=== PATIENT | female | born 1985 | race Caucasian/White ===

== ENCOUNTER 2020-03-14 07:51 | Day surgery (SDC) | payer OTHER, SELFPAY ==
--- NOTE | 2020-03-13 12:08 | HO.ANESPROP2 ---
Documented by User: Kimberly Martinez 03/13/20 12:09 HPI - Anesthesia Eval Consult details Narrative: 34yo F for umbilical hernia repair [facility] Past Medical History Medical History Opiate addiction Surgical History Surgical History Hx of hernia repair Previous section Social History Social History Are you a primary pharmacist critical care to a significant other at home: No Do you presently have visiting nurse or other home services: No Smoking Status: Never smoker Smoked in Last 30 Days: No Use of substances other than those prescribed or required for medical reasons: No Have you been hit, kicked, punched, or otherwise hurt by someone within the past year? If so, by whom?: No Advance Directives: No Advance Directives Information Provided: Yes Advance Directives on File: No Recently lost weight without trying: No Meds Allergies Allergy/AdvReac Type Severity Reaction Status Date / Time codeine Allergy Unknown Verified 03/11/20 09:55 Home Medications Medication Instructions Recorded Confirmed Type buprenorphine HCl [Subutex] 2 mg SUBLINGUAL DAILY 03/11/20 03/11/20 History Exam Exam Date and Time: March 13, 2020 1208 Assessment and Plan Assessment Anesthesia Assessment: Chart Reviewed Documented by User: Joie Jeronimo 03/14/20 10:11 [facility] Past Medical History Medical History Opiate addiction Surgical History Surgical History Hx of hernia repair Previous section Social History Social History Are you a primary pharmacist critical care to a significant other at home: No Do you presently have visiting nurse or other home services: No Smoking Status: Never smoker Smoked in Last 30 Days: No Use of substances other than those prescribed or required for medical reasons: No Have you been hit, kicked, punched, or otherwise hurt by someone within the past year? If so, by whom?: No Advance Directives: No Advance Directives Information Provided: Yes Advance Directives on File: No Recently lost weight without trying: No Meds Allergies Allergy/AdvReac Type Severity Reaction Status Date / Time codeine Allergy Unknown Verified 03/11/20 09:55 Home Medications Medication Instructions Recorded Confirmed Type buprenorphine HCl [Subutex] 2 mg SUBLINGUAL DAILY 03/11/20 03/11/20 History Exam Airway Mallampati Class: II TM Dist: >3cm Neck ROM: Full Loose/Missing/Broken Teeth: No Heart: qRRR Lungs: CTA Assessment and Plan Assessment Anesthesia Assessment: Anesthesia Plan Discussed, Consent Obtained and Chart Reviewed Final Anesthetic Review NPO: Yes ASA Class: II Final Preanesthetic Review: No Changes in Pt Med Stat, Meds & Allergies Reviewed, Consent Obtained/Reviewed, Med/Surg/Anes Hx Reviewed and Anes Risks/Benef Reviewed Patient Risk: Intermediate Procedure Risk: Low Anesthetic Plan Anesthetic Plan: GA Disposition: Standard PACU
[2020-03-14] VITALS (15 sets, daily range): BP systolic 104–125; BP diastolic 43–77; PULSE 62–83; RESP 16–20; TEMP 36.1–36.6; O2SAT 97–99; BMI 42.0
[2020-03-14 08:23] LABS: UPreg QC Valid YES; Urine Pregnancy NEGATIVE (NEGATIVE)
[2020-03-14] MEDS: ceFAZolin Sodium/Dextrose,Iso 2 GM/50 ML PIGGYBACK IV (08:23)
[2020-03-14] MEDS: Lactated Ringers 1,000 ML 100 ML IVCONT (08:23)
--- NOTE | 2020-03-14 10:49 | P.BOP_ITS ---
Brief Operative Note Date of procedure: 03/14/20 Pre-op diagnosis: umbilical hernia Post-op diagnosis: same Procedure: repair of umbilical hernia w/ mesh Implants: mesh - Ventralex Anesthesia: GLMA Surgeon: Marco A Beach [employer] Instruction Facilitator: Brook Butts Estimated blood loss (mL): 20 Pathology: other (sac) Condition: stable Disposition: PACU
[2020-03-14] MEDS: Midazolam HCl/PF 2 MG/2 ML VIAL 1 MG IVPUSH (10:59)
[2020-03-14] MEDS: Acetaminophen 325 MG TABLET 650 MG PO (12:02)
[2020-03-14] MEDS: oxyCODONE HCl Immed Release 5 MG TABLET PO (12:04)
--- NOTE | 2020-03-14 12:09 | OP_ITS ---
SURGEON: Marco A Beach MD PREOPERATIVE DIAGNOSIS: Umbilical hernia. POSTOPERATIVE DIAGNOSIS: Umbilical hernia. PROCEDURE PERFORMED: Supraumbilical hernia with Ventralex mesh. ESTIMATED BLOOD LOSS: COMPLICATIONS: ANESTHESIA: ASSISTANTS: Brook Butts PA-C. The patient is a 34-year-old female with a reducible umbilical mass. This was consistent with hernia. This was very tender and was causing her significant pain, so she wanted to proceed with repair. The patient understood technique of the procedure. She was aware of the risks, benefits, and alternatives. SPECIMENS: DESCRIPTION OF PROCEDURE: She was brought to the operating placed in supine position under general anesthesia via laryngeal mask airway. The periumbilical was prepped and draped in usual sterile fashion. A surgical time-out was done. The patient received cefazolin 2 g IV preoperatively. A short supraumbilical transverse incision made in the skin using blade #15. This was carried down through full-thickness skin down to the subcutaneous fat. We lifted the umbilicus as a flap off the rest of the hernia. This was achieved with sharp dissection using Metzenbaum scissors. Retractors were applied. The hernia sac was now seen. We proceeded to gently dissect this off the rest of the fascia by careful sharp dissection with the electrocautery. The sac was opened and there was note of omental fat, which was easily reduced. There were no bowel loops. We excised the sac off the rest of the fascial edge circumferentially and this was sent as specimen. There was note of some oozing of blood from the margins of the excised sac so we had to ligate some of this at some point with Dexon 3-0 stitch. We proceeded to check the underside of the fascial defect. The margins were noted to be clear. The defect was about 1.5 to 2 cm in diameter. I therefore used a small-sized Ventralex mesh. This was placed through the defect and laid flat under the abdominal wall. This was secured with Prolene 2-0 stitch to the fascial edge using the Prolene straps on each side. The Prolene straps were then trimmed on the fascial level. I closed the fascia with a [id number] Maxon 1 stitch. The umbilicus was tacked down to the fascia to recreate the dimple. We had irrigated earlier. We then proceeded to close the skin with subcuticular running 4-0 stitch. The incision was infiltrated with Marcaine 0.5% for postop analgesia. Sterile dressings were applied. The patient tolerated procedure well. There were no complications noted. Initial and final counts sponge and instruments were correct. Estimated blood loss about 15 mL. The patient extubated without difficulty and transferred to recovery room with stable vital signs. MD DANIEL Donohue/LAMAR / [id number]
--- NOTE | 2020-03-14 12:46 | HO.POSTANES ---
Post Anesthesia Evaluation Post Anesthesia Evaluation Vital Signs: Vital Signs Temp Pulse Resp BP Pulse Ox 03/14/20 11:15 18 03/14/20 11:10 18 03/14/20 11:05 68 20 108/67 98 03/14/20 11:00 20 03/14/20 10:59 64 20 119/54 L 98 03/14/20 10:54 97.7 F 83 20 112/43 L 98 03/14/20 08:02 97 F 77 18 125/77 97 Anesthesia: General LMA Mental Status: Awake Pain Control: Satisfactory Nausea/Vomiting: None Hydration: Adequate Anesthesia-Related Issues: No Anes. Related Issues
--- NOTE | 2020-03-14 13:41 | PC.NURSE ---
Pt received total of 200 mcg Fentanyl IV in PACU by Elaine Angulo RN, med was titrated, given 25mcg q 5 mins at 1100,1105,1110,1115,1120,1125,1130,1135. Dose ordered by anesthesia is for 50mcg q 5 minutes IV up to 4 doses, this RN was not able to document under MAR the last 4 doses as the order dose not allow for titration or lower dose
== END 2020-03-14 13:00 | disposition home or self-care (01) ==
PROVIDERS: Nurse Practitioner; PCP Emergency Medicine Emergency Medical Services; Visit Provider Surgery
PROC: (CPT 49560; principal; 2020-03-14 09:00)
DX: K43.9 Ventral hernia without obstruction or gangrene (principal); F11.20 Opioid dependence, uncomplicated
CPT/HCPCS: 49560; 49568; 81025; 88302; C1781; J0690; J1885; J2250; J2405; J3010